=== PATIENT | male | born 1990 | race Caucasian/White ===

== ENCOUNTER → 2016-08-12 | Outpatient (CLI) | payer SELFPAY ==
--- NOTE | 2016-08-12 18:56 | Diagnostic Imaging Report ---
INDICATION: Punching injury, pain. FINDINGS: No fracture, dislocation, or acute articular incongruity is apparent. IMPRESSION: No fracture identified. Dictated by: Dictated on workstation # [id number]
== END ==
LOC: RAD 18:04
PROVIDERS: ATTEND Nurse Practitioner Family
DX: S69.92XA Unspecified injury of left wrist, hand and finger(s), initial encounter (principal); W22.09XA Striking against other stationary object, initial encounter; Y99.8 Other external cause status
CPT/HCPCS: 73130

== ENCOUNTER → 2016-10-26 | Outpatient (CLI) | payer OTHER ==
--- NOTE | 2016-10-26 20:07 | Diagnostic Imaging Report ---
INDICATION: Injury. Pain to lateral aspect of left foot. FINDINGS: There is a previous hindfoot surgical compression screw demonstrated at the level of the mid talus. There is a fracture demonstrated through the fourth metatarsal. This appears transversely oriented compatible with a stress fracture but appears incomplete at this time. There is some cortical thickening along the lateral aspect of the fifth metatarsal suggesting additional stress reaction. No other fractures are evident. Alignment appears normal. IMPRESSION: 1. Prior hindfoot surgical changes, as described. 2. Incomplete stress fracture of the fourth metatarsal. There is also cortical thickening of the fifth metatarsal that also suggests stress reaction. Dictated by: Dictated on workstation # [id number]
== END ==
LOC: RAD 19:39
PROVIDERS: ATTEND Nurse Practitioner Family
DX: S99.922A Unspecified injury of left foot, initial encounter (principal); X50.0XXA Overexertion from strenuous movement or load, initial encounter; Y92.019 Unspecified place in single-family (private) house as the place of occurrence of the external cause; Y99.8 Other external cause status
CPT/HCPCS: 73630